=== PATIENT | female | born 1980 | race Caucasian/White ===

== ENCOUNTER 2021-05-21 18:51 | Emergency (ER) | payer OTHER, SELFPAY ==
[2021-05-21 19:36] LABS: COVID-19 Test Positive (Negative); IDNOW Serial# 9DD0AD1C
[2021-05-21 21:03] VITALS: BP 136/66; PULSE 66; RESP 16; TEMP 37.6; O2SAT 99; BMI 25.4
--- NOTE | 2021-05-21 23:24 | ED_ITS ---
HPI - URI/Sore Throat General Chief Complaint: Upper Respiratory Symptoms Stated Complaint: headache, coughing runny nose Time Seen by Provider: 05/21/21 22:55 Source: patient Mode of arrival: ambulatory Limitations: no limitations History of Present Illness HPI Narrative: 40-year-old female presents to the ED for cough and headache. Patient was exposed to somebody with COVID. Patient now states her son also hav ing similar symptoms. Patient denies any chest pain or shortness of breath Related Data Allergies Allergy/AdvReac Type Severity Reaction Status Date / Time No Known Allergies Allergy Verified 05/21/21 21:06 Review of Systems Review of Systems: Yes all other systems are reviewed and are negative [facility] Social History Social History Advance Directives: No Advance Directives Information Provided: Yes Patient : No Physical Exam Vital Signs: Vital Signs: Last Vital Signs Temp 99.6 F 05/21/21 21:03 Pulse 66 05/21/21 21:03 Resp 16 05/21/21 21:03 BP 136/66 05/21/21 21:03 Pulse Ox 99 05/21/21 21:03 BMI result Body Mass Index 25.4 Const: General: cooperative, healthy appearing, comfortable, no acute distress, well developed, alert, awake and Physically active Orientation/consciousness: patient oriented x3 HENMT: Head: Yes normal to inspection, Yes No palpable skull fracture present, Yes normocephalic, Yes atraumatic and No abrasion Eyes: General: appearance normal, both eyes and all related structures Neck: Neck: Yes normal visual inspection, Yes full ROM, Yes no lymphadenopathy, Yes no meningeal signs, Yes trachea midline, Yes supple, No anterior neck swelling and No tender Chest: Chest palpation & inspection: normal inspection of the chest and normal palpation of entire chest wall Resp: Effort & Inspection: normal respiratory effort and able to speak in complete sentences Auscultation: clear to auscultation bilaterally Cardio: Jugular venous distension: no JVD Heart sounds: S1 normal heart sound present and S2 normal heart sound present GI: Inspection: Yes normal to inspection and No abdominal wall ecchymosis Palpation (GI): Soft to palpation, not firm, nontender, no guarding and not rigid : General: No CVA tenderness and Yes no CVA tenderness Back/Spine/Pelvis: Back: no CVA tenderness, No CVA tenderness and No back tenderness Skin: General skin exam: no rashes or lesions noted and elasticity normal Neuro: General: patient oriented x3, gait normal, no meningeal signs and CN's II-XI intact bilaterally Cranial nerves: Yes CN's II-XII intact bilaterally Extrem: General: Yes normal to inspection and Yes full ROM Psych: Appearance: grossly normal, well kempt and not disheveled Course Course Course Narrative: Tested for COVID. Reevaluation(s) Reevaluation #1: COVID positive. Patient well-appearing. MDM - URI/Sore Throat MDM Narrative Medical decision making narrative: COVID positive Lab Data Labs: Lab Results 05/21/21 Range/Units 19:18 COVID-19 (GLO) Positive A (Negative) COVID-19 Clin Com See Note Discharge Plan Discharge Clinical Impression: COVID-19 Patient Disposition: Home, Self-Care Instructions: COVID-19 (Coronavirus Disease 2019) (ED) Additional Instructions: You were positive for COVID-19 virus. Recommend 10 days self-isolation. Return to the ED for any chest pain, shortness of breath, or any other concerning symptoms. Please follow-up primary care provider Stand Alone Forms: Work/School Release Interventions: ED Discharge Assessment Last Done: 05/21/21 23:56 Discharge Date/Time: 05/21/21 23:56 Print Language: Pashto
== END 2021-05-21 23:56 | disposition home or self-care (01) ==
PROVIDERS: Emergency Provider Emergency Medicine Emergency Medical Services; PCP Internal Medicine
DX: U07.1 COVID-19 (principal); R51.9 Headache, unspecified
CPT/HCPCS: 36415; 87635; 99283